=== PATIENT | male | born 1990 | race African-American/Black ===

== ENCOUNTER 2019-01-02 02:45 | Emergency (ER) | payer SELFPAY ==
[2019-01-02] MEDS ORDERED: BUPIVACAINE MPF 0.25% 10 ML VIAL. IJ ONE (03:30)
[2019-01-02] MEDS ORDERED: IBUPROFEN 400 MG TABLET. PO ONE (03:45)
== END 2019-01-02 03:48 | disposition home or self-care (01) ==
LOC: ER 02:45
DX: K02.9 Dental caries, unspecified (principal)
CPT/HCPCS: 99283

== ENCOUNTER → 2021-06-12 | Emergency (ER) | payer SELFPAY ==
[~2021-06-12] VITALS: Ht 190.5 cm; Wt 97.3 kg
[~2021-06-12] MED LIST: GABA600T7 PO; HYDR25TA PO
[2021-06-12 20:25] VITALS: BP 115/79
--- NOTE | 2021-06-12 20:35 | PHYS DOC ---
Past Medical History Past Medical History: Anxiety, Seizure Past Surgical History: No Surgical History General Adult EDM: Chief Complaint: CHEST PAIN HPI: HPI: Patient is a 31 year old male who present to ER for evaluation of chest pain, dizziness for last 2 days. Patient said he had history of seizure disorder, anxiety, patient is on clonazepam and Neurontin. Patient said he left his medication at home in [place], so he did not have his medication for the last 2 days. Patient came into ER because he feels weak and dizzy, cramping, having chest pain. Patient denies suicidal ideation denies homicidal ideation. Patient denies any cough or fever. Review of Systems: Review of Systems: Constitutional: Denies fever or chills. [] Eyes: Denies change in visual acuity. [] HENT: Denies nasal congestion or sore throat. [] Respiratory: Denies cough or shortness of breath. [] Cardiovascular: Positive chest PAIN GI: Denies abdominal pain, nausea, vomiting, bloody stools or diarrhea. [] : Denies dysuria. [] Musculoskeletal: Denies back pain or joint pain. [] Integument: Denies rash. [] Neurologic: Denies headache, focal weakness or sensory changes. Positive for dizziness Endocrine: Denies polyuria or polydipsia. [] Lymphatic: Denies swollen glands. [] Psychiatric: Denies depression or anxiety. [] Heart Score: C/O Chest Pain: N/A Risk Factors: Risk Factors: DM, Current or recent (<one month) smoker, HTN, HLP, family history of CAD, obesity. Risk Scores: Score 0 - 3: 2.5% MACE over next 6 weeks - Discharge Home Score 4 - 6: 20.3% MACE over next 6 weeks - Admit for Clinical Observation Score 7 - 10: 72.7% MACE over next 6 weeks - Early Invasive Strategies Allergies: Allergies: Allergies Coded Allergies Type Severity Reaction Last Updated Verified No Known Drug Allergies 01/02/19 No Physical Exam: PE: Constitutional: Well developed, well nourished, no acute distress, non-toxic appearance. [] HENT: Normocephalic, atraumatic, bilateral external ears normal, oropharynx jere st, no oral exudates, nose normal. [] Eyes: PERRLA, EOMI, conjunctiva normal, no discharge. [] Neck: Normal range of motion, no tenderness, supple, no stridor. [] Cardiovascular:Heart rate regular rhythm, no murmur [] Lungs & Thorax: Bilateral breath sounds clear to auscultation [] Abdomen: Bowel sounds normal, soft, no tenderness, no masses, no pulsatile masses. [] Skin: Warm, dry, no erythema, no rash. [] Back: No tenderness, no CVA tenderness. [] Extremities: No tenderness, no cyanosis, no clubbing, ROM intact, no edema. [] Neurologic: Alert and oriented X 3, normal motor function, normal sensory function, no focal deficits noted. [] Psychologic: Affect normal, judgement normal, mood normal. [] Current Patient Data: Vital Signs: Vital Signs Date Time Temp Pulse Resp B/P (MAP) Pulse Ox O2 Delivery O2 Flow Rate FiO2 06/12/21 20:25 97.8 82 18 115/79 (91) 100 Room Air 97.8 EKG: EKG: EKG was done at 2028, heart rate 86 bpm, sinus rhythm, no ST segment elevation Radiology/Procedures: Radiology/Procedures: [] Course & Med Decision Making: Course & Med Decision Making Pertinent Labs and Imaging studies reviewed. (See chart for details) Patient is a 31-year-old male who present to ER due to chest pain, dizziness, leg cramps. Patient said he only wanted to have EKG done and vitals checked. Patient declined lab work, declined chest x-ray. Patient requested refill his clonazepam and Neurontin. I informed patient that I cannot refill his clonazepam and Neurontin without checking his lab work, to make sure he is medically stable since his complaint of chest pain, dizziness and leg cramping. Patient declined any further work-up. Patient will sign out again medical advice. Dragon Disclaimer: Joelle Disclaimer: This electronic medical record was generated, in whole or in part, using a voice recognition dictation system. Departure Departure Impression: Primary Impression: Chest pain Disposition: LEFT AGAINST MEDICAL ADVICE Condition: STABLE Referrals: NO PCP (PCP) VIKTORIA SÁNCHEZ DO June 12, 2021 20:35
--- NOTE | 2021-06-13 19:08 | EKG ---
[facility] [address] [place] [address] Test Date: 2021-06-12 Test Time: 20:29:50 Pat Name: BERENICE MONTEZ Department: Room: Gender: M Administrative Analyst: : 1990 Requested By: VIKTORIA SÁNCHEZ Order Number: [id number] Reading MD: Measurements Intervals [place] Rate: 86 P: 64 CT: 158 QRS: 76 QRSD: 92 T: 48 QT: 370 QTc: 446 Interpretive Statements SINUS RHYTHM OTHERWISE NORMAL ECG RI6.02 No previous ECG available for comparison
== END | disposition left against medical advice (07) ==
LOC: ER 20:21
DX: R07.89 Other chest pain (principal); R42 Dizziness and giddiness; F41.9 Anxiety disorder, unspecified; G40.909 Epilepsy, unspecified, not intractable, without status epilepticus
CPT/HCPCS: 93005; 99283

== ENCOUNTER 2021-06-17 18:41 | Emergency (ER) | payer MEDICAID ==
[~2021-06-17] VITALS: Ht 190.5 cm; Wt 82.0 kg
[2021-06-17 18:45] VITALS: BP 127/61
[2021-06-17] MEDS ORDERED: GABA600T7 PO (18:58)
--- NOTE | 2021-06-17 18:59 | PHYS DOC ---
Past Medical History Past Medical History: Anxiety, Seizure (STEPH ODEN Lashawn UNDERWEAR TRIMMER) Past Surgical History: No Surgical History (STEPH ODEN Lashawn UNDERWEAR TRIMMER) Smoking Status: Never Smoker Alcohol Use: None (STEPH ODEN Lashawn UNDERWEAR TRIMMER) General Adult EDM: Chief Complaint: SEIZURE HPI: HPI: Patient is a 31 year old male with history of seizures presenting to the ED today stating he was found on the floor 2 hours ago after presumably having a seizure. Nobody witnessed it. He states he is out of his gabapentin and clonazepam. He states he does not want any lab work done because its "unnecessary". He states he just wants refills for his medicines. He states he has generalized muscle aches and he feels tired. (STEPH ODEN UNDERWEAR TRIMMER) Review of Systems: Review of Systems: constitutional: Denies fever or chills. [] Eyes: Denies change in visual acuity. [] HENT: Denies nasal congestion or sore throat. [] Respiratory: Denies cough or shortness of breath. [] Cardiovascular: Denies chest pain or edema. [] GI: Denies abdominal pain, nausea, vomiting, bloody stools or diarrhea. [] : Denies dysuria. [] Musculoskeletal: Denies back pain or joint pain. [] Integument: Denies rash. [] Neurologic: Reports presumably having a seizure. Denies headache, focal weakness or sensory changes. [] Psychiatric: Denies depression or anxiety. [] (STEPH ODEN Lashawn UNDERWEAR TRIMMER) Heart Score: C/O Chest Pain: N/A Risk Factors: Risk Factors: DM, Current or recent (<one month) smoker, HTN, HLP, family history of CAD, obesity. Risk Scores: Score 0 - 3: 2.5% MACE over next 6 weeks - Discharge Home Score 4 - 6: 20.3% MACE over next 6 weeks - Admit for Clinical Observation Score 7 - 10: 72.7% MACE over next 6 weeks - Early Invasive Strategies (STEPH ODEN UNDERWEAR TRIMMER) Allergies: Allergies: Allergies Coded Allergies Type Severity Reaction Last Updated Verified No Known Drug Allergies 01/02/19 No (ESABISISTEPH Fleming UNDERWEAR TRIMMER) Physical Exam: PE: Constitutional: Well developed, well nourished, no acute distress, non-toxic appearance. [] HENT: Normocephalic, atraumatic, bilateral external ears normal, oropharynx moist, no oral exudates, nose normal. [] Eyes: PERRLA, EOMI, conjunctiva normal, no discharge. [] Neck: Normal range of motion, no tenderness, supple, no stridor. [] Cardiovascular:Heart rate regular rhythm, no murmur [] Lungs & Thorax: Bilateral breath sounds clear to auscultation [] Abdomen: Bowel sounds normal, soft, no tenderness, no masses, no pulsatile masses. [] Skin: Warm, dry, no erythema, no rash. [] Back: No tenderness, no CVA tenderness. [] Extremities: No tenderness, no cyanosis, no clubbing, ROM intact, no edema. [] Neurologic: Alert and oriented X 3, normal motor function, normal sensory function, no focal deficits noted. [] Psychologic: Rude, verbally aggressive (STEPH ODEN APRN) EKG: EKG: [] (STEPH ODEN APRN) Radiology/Procedures: Radiology/Procedures: [] (STEPH ODEN APRN) Course & Med Decision Making: Course & Med Decision Making Pertinent Labs and Imaging studies reviewed. (See chart for details) This is a 31-year-old male patient presenting to the ED today stating he was found on the floor at home after presumably after having a seizure that was not witnessed. He is requesting a refill for gabapentin and clonazepam. He is refusing any work-up. He states work-up is "unnecessary". He was in the ED on Saturday this week complaining of chest pain, he also was refusing work-up at that visit and just wanted a refill of his clonazepam and gabapentin. Informed today we will refill his gabapentin but he needs to follow-up with his own primary care doctor/neurologist for clonazepam. Patient has been rude and verbally aggressive. He was in the waiting room and was kicked out by security after being aggressive to them (STEPH ODEN APRN) Dragon Disclaimer: Dragon Disclaimer: This electronic medical record was generated, in whole or in part, using a voice recognition dictation system. (STEPH ODEN APRN) Departure Departure Impression: Primary Impression: Seizure Disposition: 01 HOME / SELF CARE / HOMELESS Condition: STABLE Referrals: NO PCP (PCP) follow up with your primary care doctor and neurologist on Saturday Patient Instructions: Seizure, Adult Additional Instructions: Please follow up with your primary care doctor and neurologist on Saturday Scripts Gabapentin (GABAPENTIN) 600 Mg Tablet 600 MG PO TID for NEUROGENIC PAIN, #15 TAB Prov: STEPH ODEN UNDERWEAR TRIMMER 06/17/21 Attending Signature Attending Signature I have reviewed the PA/CORRECTIONAL THERAPY TEACHER's note and plan of care. I was available for consultation as needed during the patient's visit in the emergency department. I agree with the clinical impression, plan, and disposition. (FLAKITA ALARCON DO) STEPH ODEN APRN June 17, 2021 18:59 FLAKITA ALACRON DO June 18, 2021 00:11
[2021-06-17] MEDS ORDERED: HYDR25TA PO (20:56)
== END 2021-06-17 19:08 | disposition home or self-care (01) ==
LOC: ER 18:41
DX: R56.9 Unspecified convulsions (principal); M79.10 Myalgia, unspecified site; F41.9 Anxiety disorder, unspecified
CPT/HCPCS: 99283

== ENCOUNTER 2021-06-17 19:41 | Emergency (ER) | payer MEDICAID ==
[~2021-06-17] VITALS: Ht 190.5 cm; Wt 95.4 kg
[~2021-06-17 19:41] MED LIST changes: -HYDR25TA PO
[2021-06-17] MEDS ORDERED: GABAPENTIN 300 MG CAPSULE. PO STA (20:13)
[2021-06-17] MEDS ORDERED: levETIRAcetam 1,000mg PREMIX 100 ML IV ONE (20:30)
--- NOTE | 2021-06-17 20:43 | PHYS DOC ---
Past Medical History Past Medical History: Anxiety, Seizure (STEPH ODEN PAPER TESTER) Past Surgical History: No Surgical History (STEPH ODEN PAPER TESTER) Smoking Status: Never Smoker Alcohol Use: Occasionally (STEPH ODEN PAPER TESTER) General Adult EDM: Chief Complaint: SEIZURE HPI: HPI: Patient is a 31 year old male with history of seizures, anxiety presenting back to the ED after being discharged a few minutes ago. Patient was seen earlier after presumably having unwitnessed seizure and was asking for gabapentin and clonazepam, he was informed we do not refill clonazepam in the ED. He left the building, went somewhere and called EMS. He lied to EMS about his visit to the ED as well as his name until he arrived to the ED and we identified him. He is verbally aggressive. He continues to say he needs his clonazepam for seizures. He seems less interested in the gabapentin. Informed him we do not refill Clonezapam and we will be glad to work up for seizures and give him other seizures medicines. Denies any SI or HI. He continues to be verbally aggressive including using racist words on me. I walked out of the room as he was escalating verbally. (STEPH ODEN PAPER TESTER) Review of Systems: Review of Systems: Constitutional: Denies fever or chills. [] Eyes: Denies change in visual acuity. [] HENT: Denies nasal congestion or sore throat. [] Respiratory: Denies cough or shortness of breath. [] Cardiovascular: Denies chest pain or edema. [] GI: Denies abdominal pain, nausea, vomiting, bloody stools or diarrhea. [] : Denies dysuria. [] Musculoskeletal: Denies back pain or joint pain. [] Integument: Denies rash. [] Neurologic: Reports seizure, denies headache, focal weakness or sensory changes. [] Psychiatric: Denies depression or anxiety. [] (STEPH ODEN PAPER TESTER) Heart Score: C/O Chest Pain: N/A Risk Factors: Risk Factors: DM, Current or recent (<one month) smoker, HTN, HLP, family history of CAD, obesity. Risk Scores: Score 0 - 3: 2.5% MACE over next 6 weeks - Discharge Home Score 4 - 6: 20.3% MACE over next 6 weeks - Admit for Clinical Observation Score 7 - 10: 72.7% MACE over next 6 weeks - Early Invasive Strategies (STEPH ODEN PAPER TESTER) Current Medications: Current Medications Medications (Trade) Dose Ordered Sig/Airam Start Time Stop Time Status Last Admin Dose Admin Gabapentin (Neurontin) 600 mg 1X STAT 06/17/21 20:13 06/17/21 20:14 DC Levetiracetam 100 ml @ 400 mls/hr 1X ONCE 06/17/21 20:30 06/17/21 20:44 (STEPH ODEN PAPER TESTER) Allergies: Allergies: Allergies Coded Allergies Type Severity Reaction Last Updated Verified No Known Drug Allergies 06/17/21 No (STEPH ODEN PAPER TESTER) Physical Exam: PE: Constitutional: Well developed, well nourished, no acute distress, non-toxic appearance. [] HENT: Normocephalic, atraumatic, bilateral external ears normal, oropharynx moist, no oral exudates, nose normal. [] Eyes: PERRLA, EOMI, conjunctiva normal, no discharge. [] Neck: Normal range of motion, no tenderness, supple, no stridor. [] Cardiovascular:Heart rate regular rhythm, no murmur [] Lungs & Thorax: Bilateral breath sounds clear to auscultation [] Abdomen: Bowel sounds normal, soft, no tenderness, no masses, no pulsatile masses. [] Skin: Warm, dry, no erythema, no rash. [] Back: No tenderness, no CVA tenderness. [] Extremities: No tenderness, no cyanosis, no clubbing, ROM intact, no edema. [] Neurologic: Alert and oriented X 3, normal motor function, normal sensory function, no focal deficits noted. [] Psychologic: Flat affect, verbally aggressive (STEPH ODEN PAPER TESTER) Current Patient Data: Vital Signs: Vital Signs Date Time Temp Pulse Resp B/P (MAP) Pulse Ox O2 Delivery O2 Flow Rate FiO2 06/17/21 20:05 98.1 102 18 147/91 (109) Room Air 98.1 (STEPH ODEN PAPER TESTER) EKG: EKG: [] (CECILLESTEPH Hardin PAPER TESTER) Radiology/Procedures: Radiology/Procedures: [] (CECILLESTEPH Hardin PAPER TESTER) Course & Med Decision Making: Course & Med Decision Making Pertinent Labs and Imaging studies reviewed. (See chart for details) This a 31-year-old male patient returning to the ED after being discharged a couple minutes ago complaining of a seizure he presumably had 2 hours ago. Patient was in the ED earlier, he was asking for clonazepam and gabapentin refills. We will send his gabapentin to the pharmacy and told him we will not refill his clonazepam. He left and came back via EMS infact lied to EMS about his visit to the ED earlier. Off note he was in the ED on Saturday and complained of chest pain and was also requesting refill for gabapentin and clonazepam. He refused lab work and he left to the ED when he was told there will not refill his clonazepam and gabapentin without working him up Patient is verbally aggressive and uses racist words even to me. He will not listen to anything we say, anytime you start talking to him he interrupts and start talking rudely. At somepoint he started to record and take videos. Informed him he will be worked up for seizure in the emergency room, informed him we will give him Keppra for his seizures and the gabapentin. 2039 RN stated patient has refused labs, refused Keppra, he continues to insist he needs to get gabapentin and clonazepam. He mostly is insisting on getting clonazepam. He started stating his anxiety is off the roof. He was offered hydroxyzine and rx sent to his pharmacy. Charge nurse tried talking to patient, he was verbally aggressive and willing to go and requested warehouse coordinator was called to come and talk to him. fiberglass pipe covering supervisor talk to this patient for almost an hour. At some point he states patient stated he has HI and SI ideations with no plan. Removed patient to room 22, ordered a 1:1 sitter. Patient was informed security to come and take his personal belongings and he will be changed into a hospital gown for SI HI patients and he will still need to give labs and urine and tested for covid to psych placement. Surprisingly patient changed his statement right away saying he has no suicidal or homicidal ideations. He informed Leandro the warehouse coordinator he came from [facility] and would like to go back. RN contacted [facility] and he was discharged to [facility] (STEPH ODEN APRN) Joelle Disclaimer: Joelle Disclaimer: This electronic medical record was generated, in whole or in part, using a voice recognition dictation system. (STEPH ODEN PAPER TESTER) Departure Departure Impression: Primary Impression: Seizure Additional Impression: Anxiety Disposition: HOME / SELF CARE / HOMELESS Condition: STABLE Referrals: NO PCP (PCP) follow up with your doctor on Saturday Patient Instructions: Anxiety and Panic Attacks, Seizure, Adult Additional Instructions: You were seen in the emergency room again for your seizure complaint. You refused to be worked up. As stated earlier we will not refill your clonazepam. Your gabapentin was already sent to the pharmacy you can pick it up tomorrow. You need to follow-up with your primary care doctor or neurologist for your seizure medicines. Scripts Hydroxyzine Hcl (HYDROXYZINE HCL) 25 Mg Tablet 1 TAB PO TID, #12 TAB Prov: STEPH ODEN APRN 06/17/21 Attending Signature Attending Signature I have reviewed the PA/REHABILITATION PHYSICIAN's note and plan of care. I was available for consultation as needed during the patient's visit in the emergency department. I agree with the clinical impression, plan, and disposition. (FLAKITA ALARCON DO) STEPH ODEN APRN June 17, 2021 20:43 FLAKITA ALARCON DO June 18, 2021 00:13
[2021-06-17] MEDS ORDERED: HYDR25TA PO (20:56)
[2021-06-17] MEDS ORDERED: hydrOXYzine 25 MG TABLET PO ONE (21:30)
[2021-06-17 22:12] VITALS: BP 142/79
== END 2021-06-17 22:00 | disposition home or self-care (01) ==
LOC: ER 19:41
DX: R56.9 Unspecified convulsions (principal); F41.9 Anxiety disorder, unspecified
CPT/HCPCS: 99283